=== PATIENT | female | born 1990 | race Caucasian/White ===

== ENCOUNTER 2018-05-10 08:13 | Emergency (ER) | payer BC, SELFPAY ==
[2018-05-10] MEDS ORDERED: Ketorolac Tromethamine 30 MG/ML VIAL ONE (09:28)
[2018-05-10 09:55] LABS: Bilirubin Negative (Negative); Blood, Urine Trace (Negative); Clarity CLOUDY (Clear); Glucose, Urine (Dipstick) Negative (Negative); Leukocyte Small (Negative); Nitrite Negative (Negative); Protein, Urine (Dipstick) Negative (Neg-Trace); Specific Gravity, Urine 1.022 (1.002-1.036); Urobilinogen 0.2 mg/dL (0.2-1.0); pH, Urine 5.5 (5.0-9.0)
[2018-05-10 09:58] LABS: Bacteria/HPF 1+ HPF (None Seen); Hyaline Casts/LPF 0-3 HYALINE CAST LPF (0-3 Hyaline); WBC/HPF 0-3 HPF (0-3)
[2018-05-10] MEDS ORDERED: Diazepam 5 MG TAB ONE (10:29)
== END 2018-05-10 11:18 | disposition home or self-care (01) ==
LOC: ERS 08:13 → MERGE 08:13 → ERS 11:18
DX: M54.5 Low back pain (principal)
CPT/HCPCS: 81003; 81015; 87086; 96372; J1885

== ENCOUNTER 2019-03-27 06:32 | Emergency (ER) | payer SELFPAY ==
[2019-03-27] MEDS ORDERED: Ondansetron PF 4 MG/2 ML Vial ONE (06:49)
[2019-03-27] MEDS ORDERED: Morphine 4 MG/ML VIAL ONE ×2 (06:53→07:19)
[2019-03-27 07:03] LABS: #Basophils 0.1 thou/uL (0.0-0.2); #Eosinphils 0.2 thou/uL (0.0-0.7); #Lymphocytes 2.3 thou/uL (1.20-3.40); #Monocytes 0.6 thou/uL (0.11-0.59); #Neutrophils 3.5 thou/uL (1.40-6.50); %Basophils 0.8 % (0.0-1.0); %Eosinophils 2.7 % (0.0-10.0); %Lymphocytes 34.6 % (21.0-51.0); %Monocytes 8.5 % (0.0-10.0); %Neutrophils 53.4 % (42.0-75.0); Hemoglobin 14.8 g/dL (12.0-16.0); Mean Corpuscular HGB CONC 34.3 g/dL (32.0-36.0); Mean Corpuscular Hemoglobin 32.4 pg (27.0-31.0); Mean Corpuscular Volume 94.3 fL (78.0-98.0); Mean Platelet Volume 9.2 fL (7.4-10.4); Platelet Count 236 thou/uL (130-400); Red Blood Cell (RBC) Count 4.56 mill/uL (4.20-5.40); White Blood Cell (WBC) Count 6.6 thou/uL (4.8-10.8)
[2019-03-27 07:13] LABS: BHCG - Serum Negative (NEGATIVE); Pregs Control Background? CLEAR/WHITE (CLR/WHITE); Pregs Control Bar Appear? YES (CONTROL BAR)
[2019-03-27 07:34] LABS: ALT (SGPT) 17 U/L (8-55); AST (SGOT) 14 U/L (5-34); Albumin 4.4 g/dL (3.5-5.0); Alkaline Phosphatase 62 U/L (40-110); Anion Gap 16 mmol/L (10-20); BUN (Urea Nitrogen) 11 mg/dL (7.0-18.7); Bilirubin, Total 1.7 mg/dL (0.2-1.2); Calc. Creatinine Clearance 0 mL/min (70-130); Carbon Dioxide 20 mmol/L (22-29); Chloride 106 mmol/L (98-107); Estimated GFR-MDRD 86; Globulin 2.6 g/dL (2.4-3.5); Glucose 118 mg/dL (70-105); Lipase 11 U/L (8-78); Potassium 3.6 mmol/L (3.5-5.1); Sodium 138 mmol/L (136-145)
[2019-03-27] MEDS ORDERED: Ketorolac Tromethamine 30 MG/ML VIAL ONE (07:35)
[2019-03-27] MEDS ORDERED: HYDROmorphone 0.5 MG/0.5 ML SYRINGE ONE (08:48)
[2019-03-27 08:58] LABS: Bilirubin Negative (Negative); Blood, Urine 2+ (Negative); Clarity Turbid (Clear); Glucose, Urine (Dipstick) Normal (Negative); Leukocyte Negative Leu/uL (Negative); Nitrite Negative (Negative); Protein, Urine (Dipstick) 30 mg/dL (Neg-Trace); RBC/HPF Greater than 50 HPF (0-3); Squamous Epithelial 0-3 HPF (0-3); Urobilinogen Normal mg/dL (Less than 2)
--- NOTE | 2019-03-27 08:59 | CT ---
CT ABDOMEN AND PELVIS WITHOUT IV CONTRAST: HISTORY: Abdominal pain. Left sided back pain. COMPARISON: 05/29/2010 FINDINGS: There is a 0.3 cm in diameter subpleural nodule in the region of the right middle lobe. There is a sm all hiatal hernia. The visualized liver, gallbladder, pancreas, spleen and adrenal glands are unremar kable as evaluated without IV contrast. A 0.3 cm in diameter, obstructing proximal left ureteral calculus with some hydronephrosis. Normal ap pearing appendix. Unremarkable uterus and adnexal regions. No abscess or abnormal fluid collection. IMPRESSION: 1. Obstructing, 0.3 cm in diameter proximal left ureteral calculus. 2. A 0.3 cm in diameter subpleural pulmonary nodule in the right middle lobe, laterally. Consider one year follow-up chest CT scan for further assessment. POS: RODRÍGUEZ
[2019-03-27 09:08] LABS: Bacteria/HPF Rare-Few HPF (None Seen)
== END 2019-03-27 09:50 | disposition home or self-care (01) ==
LOC: ERS 06:32
DX: N13.2 Hydronephrosis with renal and ureteral calculous obstruction (principal); Z87.442 Personal history of urinary calculi
CPT/HCPCS: 36415; 74176; 80053; 81003; 81015; 83690; 84703; 85025; 87077; 87086; 96361; 96374; 96375; 96376; J1170; J1885; J2270; J2405

== ENCOUNTER 2019-03-28 09:26 | Emergency (ER) | payer SELFPAY ==
[2019-03-28] MEDS ORDERED: Morphine 10 MG/ML VIAL SLOW IVP SCH (11:15)
[2019-03-28] MEDS ORDERED: Ketorolac Tromethamine 30 MG/ML VIAL IVP SCH (11:15)
[2019-03-28] MEDS ORDERED: Sodium Chloride 0.9% 1,000 ML IV SCH (11:15)
[2019-03-28] MEDS ORDERED: Morphine 4 MG/ML VIAL ONE ×2 (11:27→14:02)
[2019-03-28] MEDS ORDERED: chlordiazePOXIDE HCl 25 MG CAP ONE (11:27)
[2019-03-28] MEDS ORDERED: Ondansetron PF 4 MG/2 ML Vial ONE (11:28)
[2019-03-28] MEDS ORDERED: Ketorolac Tromethamine 30 MG/ML VIAL ONE (11:28)
[2019-03-28 11:31] LABS: #Basophils 0.1 thou/uL (0.0-0.2); #Eosinphils 0.1 thou/uL (0.0-0.7); #Lymphocytes 1.6 thou/uL (1.20-3.40); #Monocytes 0.4 thou/uL (0.11-0.59); #Neutrophils 6.3 thou/uL (1.40-6.50); %Basophils 0.8 % (0.0-1.0); %Eosinophils 0.8 % (0.0-10.0); %Lymphocytes 18.6 % (21.0-51.0); %Neutrophils 74.8 % (42.0-75.0); Hemoglobin 14.6 g/dL (12.0-16.0); Mean Corpuscular Hemoglobin 31.6 pg (27.0-31.0); Mean Corpuscular Volume 93.1 fL (78.0-98.0); Mean Platelet Volume 9.2 fL (7.4-10.4); Platelet Count 264 thou/uL (130-400); RBC Distribution Width 11.8 % (11.5-14.5); Red Blood Cell (RBC) Count 4.63 mill/uL (4.20-5.40); White Blood Cell (WBC) Count 8.5 thou/uL (4.8-10.8)
[2019-03-28] MEDS ORDERED: Lidocaine HCl/PF 100 MG/5 ML SYRINGE SLOW IVP SCH (11:45)
[2019-03-28] MEDS ORDERED: Lidocaine 1% PF 5 ML VIAL ONE ×2 (11:57→12:02)
[2019-03-28 11:59] LABS: Anion Gap 13 mmol/L (10-20); BUN (Urea Nitrogen) 9 mg/dL (7.0-18.7); Calc. Creatinine Clearance 0 mL/min (70-130); Calcium 9.7 mg/dL (7.8-10.44); Carbon Dioxide 20 mmol/L (22-29); Chloride 110 mmol/L (98-107); Estimated GFR-MDRD Greater than 90; Glucose 97 mg/dL (70-105); Potassium 3.8 mmol/L (3.5-5.1); Sodium 139 mmol/L (136-145)
--- NOTE | 2019-03-28 14:18 | ULT ---
Exam: Bilateral renal ultrasound HISTORY: Left-sided obstructive uropathy COMPARISON: None Correlation: Renal stone CT to 04/14/2019 FINDINGS: Right kidney: Normal cortical echotexture. No hydronephrosis. Right kidney measurements: 11.9 x 4.5 x 5.9 cm. Left kidney: Normal cortical echotexture. No hydronephrosis Left kidney measurements 12.5 x 6.5 x 6.1 cm. Urinary bladder: Normal mucosa. IMPRESSION: 1. No evidence of left-sided hydronephrosis
== END 2019-03-28 15:05 | disposition home or self-care (01) ==
LOC: ERS 09:26
DX: N23 Unspecified renal colic (principal)
CPT/HCPCS: 76770; 80048; 85025; 96361; 96374; 96375; 96376; J1885; J2001; J2270; J2405

== ENCOUNTER 2019-12-28 14:15 | Outpatient (CLI) | payer BC ==
[~2019-12-28 14:15] MED LIST: Iopamidol-370 76% 500 ML 1 ML ONE
--- NOTE | 2019-12-28 17:54 | CT ---
CT ABDOMEN AND PELVIS WITH AND WITHOUT IV CONTRAST: 12/28/19 Postcontrast images were obtained in portal venous and delayed venous phase. INDICATIONS: Hematuria. Calculus of ureter. Comparison made to prior CT abdomen and pelvis 03/27/19. FINDINGS: Images through the lung bases again show a small nodule in the right middle lobe measuring in the 3 t o 4 mm range. This is stable. On noncontrast images, the urinary tract shows no evidence of urinary tract calcification. The ureter s are normal caliber. The bladder is contracted. On postcontrast images, both kidneys show symmetric enhancement. No evidence of renal mass. Delayed i mages show contrast secretion into the collecting structures. Collecting structures are unremarkable. The bladder is mildly distended on delayed sequence and is poorly evaluated but appears unremarkable as visualized. Liver, spleen, and pancreas unremarkable. Adrenal glands normal. Small and large bowel loops unremarkable. Aorta normal caliber. No adenopathy or free fluid. Osseous structures unremarkable. uterus and adnexa unremarkable. IMPRESSION: 1. Small nodule in the right middle lobe is stable. 2. No evidence of urinary tract calculus or obstruction. No abnormality identified. POS: AGW
== END 2019-12-28 14:16 | disposition home or self-care (01) ==
LOC: BICCT 14:15
PROVIDERS: ATTEND Urology
DX: N20.1 Calculus of ureter (principal); R31.29 Other microscopic hematuria; R10.9 Unspecified abdominal pain; R91.1 Solitary pulmonary nodule
CPT/HCPCS: 74178

== ENCOUNTER 2020-01-11 12:57 | Outpatient (CLI) | payer BC ==
--- NOTE | 2020-01-12 15:32 | NM ---
Exam: Nuclear medicine Octreoscan HISTORY: Carcinoid syndrome TECHNIQUE: Patient was administered 5.5 mCi of indium-111 octreotide intravenously. Planar and SPECT imaging is performed FINDINGS: Physiologic distribution of the radiotracer. There is no evidence of abnormal radiotracer localizatio n in the chest, abdomen or pelvis on the planar or SPECT images. IMPRESSION: No scintigraphic evidence of a focus of abnormal radiotracer localization in the chest, abdomen or pe lvis. There is no scintigraphic candidate for a carcinoid lesion/neuroendocrine tumor lesion Transcribed Date/Time: 01/12/2020 4:09 PM
== END 2020-01-11 12:58 | disposition home or self-care (01) ==
LOC: NM 12:57
PROVIDERS: ATTEND Internal Medicine Gastroenterology
DX: E34.0 Carcinoid syndrome (principal); R11.2 Nausea with vomiting, unspecified; R19.7 Diarrhea, unspecified
CPT/HCPCS: 78802; 78803; A4641; A9572

== ENCOUNTER 2021-12-15 20:26 | Emergency (ER) | payer SELFPAY ==
[2021-12-15 20:54] LABS: #Lymphocytes 0.5 thou/uL (1.20-3.40); #Monocytes 0.4 thou/uL (0.11-0.59); #Neutrophils 10.4 thou/uL (1.40-6.50); %Basophils 0.2 % (0.0-1.0); %Eosinophils 0.3 % (0.0-10.0); %Lymphocytes 4.1 % (21.0-51.0); %Monocytes 3.8 % (0.0-10.0); %Neutrophils 91.6 % (42.0-75.0); Hemoglobin 16.5 g/dL (12.0-16.0); Mean Corpuscular HGB CONC 34.3 g/dL (32.0-36.0); Mean Corpuscular Hemoglobin 32.6 pg (27.0-31.0); Mean Corpuscular Volume 95.1 fL (78.0-98.0); Platelet Count 263 thou/uL (130-400); RBC Distribution Width 11.5 % (11.5-14.5); Red Blood Cell (RBC) Count 5.06 mill/uL (4.20-5.40); White Blood Cell (WBC) Count 11.4 thou/uL (4.8-10.8)
[2021-12-15 20:59] LABS: BHCG - Serum Negative (NEGATIVE); Pregs Control Background? CLEAR/WHITE (CLR/WHITE); Pregs Control Bar Appear? YES (CONTROL BAR)
[2021-12-15] MEDS ORDERED: Ondansetron PF 4 MG/2 ML Vial ONE (21:40)
[2021-12-15 21:54] LABS: Bilirubin Negative (Negative); Blood, Urine Negative (Negative); Clarity Clear (Clear); Glucose, Urine (Dipstick) Normal (Negative); Ketone, Urine 60 mg/dL (Negative); Leukocyte Negative Leu/uL (Negative); Nitrite Negative (Negative); Protein, Urine (Dipstick) 20 mg/dL (Neg-Trace); Specific Gravity, Urine 1.036 (1.002-1.036); Urobilinogen Normal mg/dL (Less than 2); pH, Urine 5.5 (5.0-9.0)
[2021-12-15 22:03] LABS: Amphetamine Detected (NotDetected); Barbiturates Screen Not Detected (NotDetected); Benzodiazepine Screen Not Detected (NotDetected); Cocaine Metabolite Screen Not Detected (NotDetected); Methadone Not Detected (NotDetected); Methamphetamine Not Detected (NotDetected); Opiate Screen Not Detected (NotDetected); Oxycodone Screen Not Detected (NotDetected); Phencyclidine (PCP) Not Detected (NotDetected); THC/Cannabinoid Screen Not Detected (NotDetected); Tricyclic Screen Not Detected (NotDetected)
[2021-12-15 22:06] LABS: ALT (SGPT) 15 U/L (8-55); AST (SGOT) 14 U/L (5-34); Albumin 4.9 g/dL (3.5-5.0); Alkaline Phosphatase 49 U/L (40-110); Anion Gap 15 mmol/L (10-20); BUN (Urea Nitrogen) 14 mg/dL (7.0-18.7); Bilirubin, Total 2.6 mg/dL (0.2-1.2); Calc. Creatinine Clearance 0 mL/min (70-130); Calcium 9.4 mg/dL (7.8-10.44); Carbon Dioxide 22 mmol/L (22-29); Chloride 106 mmol/L (98-107); Estimated GFR 104; Glucose 114 mg/dL (70-105); Potassium 3.9 mmol/L (3.5-5.1); Protein, Total 7.9 g/dL (6.0-8.3); Sodium 139 mmol/L (136-145)
[2021-12-15] MEDS ORDERED: Promethazine HCl 12.5 MG in Sodium Chloride 0.9% 50 ML IVPB SCH (23:59)
== END 2021-12-16 03:06 | disposition home or self-care (01) ==
LOC: ERS 20:26
DX: R55 Syncope and collapse (principal)
CPT/HCPCS: 70450; 80053; 80306; 81003; 84146; 84703; 85025; 93005; 96374; J2405; J2550; J3490

== ENCOUNTER 2021-12-18 07:21 | Emergency (ER) | payer SELFPAY | END 2021-12-18 09:01 | disposition home or self-care (01) | LOC: ERS 07:21 | DX: M25.512 Pain in left shoulder (principal) | CPT/HCPCS: 93005 ==